=== PATIENT | female | born 1955 | race Caucasian/White ===

== ENCOUNTER → 2023-01-19 08:13 | Outpatient (REF) | payer OTHER, SELFPAY | LOC: HO.CARD 08:13 | PROVIDERS: PCP Family Medicine; Visit Provider Internal Medicine | DX: Z13.89 Encounter for screening for other disorder (principal) ==

== ENCOUNTER 2023-01-19 08:58 | Inpatient (IN) | payer OTHER, SELFPAY ==
--- NOTE | 2023-01-19 | ECG_ITS ---
Test Reason : PRE ADMISSION Blood Pressure : / mmHG Vent. Rate : 112 BPM Atrial Rate : 000 BPM P-R Int : 000 ms QRS Dur : 080 ms QT Int : 362 ms P-R-T Axes : 000 012 -09 degrees QTc Int : 494 ms Atrial fibrillation with rapid ventricular response Nonspecific T wave abnormality Intra-ventricular conduction delay Abnormal ECG When compared with ECG of 19-JAN-2023 09:11, Heart rate has decreased Referred By: Sea Valero Electronically Signed By:SAHRA LIN MD
--- NOTE | ~2023-01-19 | XR_ITS ---
EXAMINATION: XR CHEST CLINICAL INFORMATION: Atrial fibrillation with chest pain COMPARISON: 12/29/2026 TECHNIQUE: Frontal view of the chest was obtained. FINDINGS: The lungs are hypoinflated. There is mild prominence of the cardiac silhouette. No gross evidence of CHF. There are new (compared with 2006) increased interstitial markings present at the right lung base with some possible curly B lines which are not seen on the left. At the time of the prior study there was a left lower lobe interstitial infiltrate and atelectasis present which has cleared. No pleural effusions. XR/XR chest 1V IMPRESSION: Hypoinflated lungs with increased interstitial markings at the right lung base with some possible curly B lines. Infection as an etiology cannot be excluded.
--- NOTE | ~2023-01-19 | XR_ITS ---
EXAMINATION: XR CHEST CLINICAL INFORMATION: Shortness of breath COMPARISON: 01/19/2023 TECHNIQUE: Frontal view of the chest was obtained. FINDINGS: There is better inflation of lungs with persistent prominence of interstitial markings in the right lower lobe/right middle lobe. The rest of lungs are clear and cardiomediastinal silhouette is normal. There is no consolidation or pleural effusions seen. XR/XR chest 1V IMPRESSION: Persistent prominence of interstitial markings and improved aeration
[2023-01-19 09:04] VITALS: BP 128/79; PULSE 149; RESP 22; TEMP 36.6; O2SAT 98; BMI 36.8
--- NOTE | 2023-01-19 09:12 | ECG_ITS ---
Test Reason : AFIB Blood Pressure : / mmHG Vent. Rate : 135 BPM Atrial Rate : 000 BPM P-R Int : 000 ms QRS Dur : 082 ms QT Int : 320 ms P-R-T Axes : 000 009 005 degrees QTc Int : 480 ms Atrial fibrillation with rapid ventricular response Intra-ventricular conduction delay Nonspecific T wave abnormality Abnormal ECG When compared with ECG of 29-DEC-2006 01:59, Atrial fibrillation has replaced Sinus rhythm Nonspecific T wave abnormality is new Heart rate has increased Referred By: Asiya Winkler Electronically Signed By:SAHRA LIN MD
--- NOTE | 2023-01-19 09:30 | ED_ITS ---
HPI - Arrhythmia/Palpitations General Chief Complaint: Arrhythmia/Palpitations Stated Complaint: from cardiology Time Seen by Provider: 01/19/23 09:02 History of Present Illness HPI narrative: Patient is a 67-year-old female presents today with having chest pain. Patient chest pain worse with exertion. Was going to the stress lab when she was found to be in AFib. Patient was sent down for further evaluation. There is no fever no chills. Patient feels her heart is going fast. She has a history of being on metoprolol. Positive history of pre diabetes. No diaphoresis. Patient from home. No coughing or congestion or upper respiratory symptoms. Related Data Allergies Allergy/AdvReac Type Severity Reaction Status Date / Time Sulfa (Sulfonamide Allergy Unknown RASH Verified 01/19/23 09:36 Antibiotics) [SULFA (SULFONAMIDE ANTIBIOTICS)] Review of Systems 2 Review of Systems: Positive [facility] Past Medical History Attestation statement: The following information was validated with the patient. Family History Family History (Updated 01/19/23 @ 11:27 by Margarito Marshall MD) Father Heart problem Social History Social History Smoked in Last 30 Days: No Use of substances other than those prescribed or required for medical reasons: No Advance Directives: No Advance Directives Information Provided: Yes Physical Exam 2 Vital Signs: Vital Signs: Last Vital Signs Temp 97.9 F 01/19/23 09:04 Pulse 110 H 01/19/23 10:50 Resp 18 01/19/23 10:50 BP 113/80 01/19/23 10:50 Pulse Ox 97 01/19/23 10:50 O2 Del Method Room Air 01/19/23 10:50 BMI result Body Mass Index 36.8 Appearance: Alert. Oriented X3. No acute distress. Eyes: Pupils equal, round and reactive to light. ENT: Pharynx normal. Neck: Normal inspection. Neck supple. No lymph nodes noted. No crepitus CVS: Tachycardic and irregular Respiratory: No respiratory distress. Breath sounds normal. No Wheezing. No rales Abdomen: Soft and nontender. No rigidity. No distention. good BS x4 Skin: Skin warm and dry. Normal skin color. Normal skin turgor. Extremities: No lower extremity edema. Neurovascular intact to all extremities. No Lacerations. No Rash Neuro: Oriented X 3. No motor deficit. No sensory deficit. Moving all extermities. No slurred speech Medications Administered Discontinued Medications Generic Name Dose Route Start Last Admin Trade Name José Manuel PRN Reason Stop Dose Admin Aspirin 324 mg 01/19/23 09:27 01/19/23 09:36 Aspirin 81 Mg Tab.Chew PO 01/19/23 09:28 324 mg ONCE ONE Administration Sodium Chloride 500 mls @ 999 mls/hr 01/19/23 09:30 01/19/23 09:47 Ns IV 01/19/23 10:00 999 mls/hr .Q31M FREDDIE Administration Metoprolol Tartrate 5 mg 01/19/23 09:28 01/19/23 09:39 Metoprolol Tartrate 5 Mg/5 Ml Vial IVPUSH 01/19/23 09:29 5 mg ONCE ONE Administration Metoprolol Tartrate 5 mg 01/19/23 10:38 01/19/23 10:54 Metoprolol Tartrate 5 Mg/5 Ml Vial IVPUSH 01/19/23 10:39 5 mg ONCE ONE Administration Medical Decision Making Medical Decision Making [facility] Narrative: Patient presented in atrial fibrillation heart rate was approximately 140. My interpretation initial EKG showed an atrial fibrillation pattern heart rate was [address] segment elevation is diffuse T-wave flattening noted. Patient's blood pressure was tolerable went ahead and give patient 2 doses of metoprolol heart rate is down to 100 patient's Tavo Vasc 2 score is a 3. We will go ahead and start patient on Eliquis. Patient's case discussed with the cardiology team. Will admit patient for further evaluation possible cardioversion. Case discussed with the hospitalist team. Patient to be admitted. Had a long discussion with patient and family. Agree with plan of admission. Differential Diagnosis Differential Diagnoses: The differential diagnosis associated with the presentation includes Atrial fibrillation, CAD, congestive heart failure, hyperthyroid, Admission/Observation Consideration of admission/observation: Escalation of care including admission/observation considered Consult Healthcare Provider Management of the patient was discussed with: Hospitalist and Customer Retention Representative (Case discussed with head inspector) Lab Data [facility] Lab Attestation statement: I reviewed the patient's lab results. 01/19/23 10:09 01/19/23 10:09 Labs: Lab Results 11/15/23 Range/Units 10:09 WBC 6.4 (4.8-10.8) X10*3/uL RBC 4.42 (4.20-5.50) X10*6/uL Hgb 13.8 (12.0-16.0) g/dl Hct 42.7 (37.0-47.0) % MCV 96.6 (80.0-98.0) fL MCH 31.2 (27.0-33.0) pg MCHC 32.3 (31.0-35.0) g/dl RDW 13.2 (11.0-16.0) % Plt Count 240 (160-400) X10*3/uL MPV 9.9 (9.4-12.3) fL Immature Gran % (Auto) 0.3 (0.0-0.4) % Neut % (Auto) 68.2 (45-73) % Lymph % (Auto) 20.4 (20-40) % Bee % (Auto) 7.7 (2-11) % Eos % (Auto) 2.8 (0-4) % Baso % (Auto) 0.6 (0-2) % Lymph # (Auto) 1.3 (1.2-4.9) X10*3/uL Bee # (Auto) 0.5 (0.1-1.2) X10*3/uL Eos # (Auto) 0.2 (0.0-0.4) X10*3/uL Baso # (Auto) 0.0 (0.0-0.2) X10*3/uL Abs Immat Gran (auto) 0.02 (0.00-0.03) X10*3/uL Absolute Neuts (auto) 4.3 (2.0-8.3) x10*3/uL Absolute Nucleated RBC 0.000 (0.0-0.012) X10*3/uL Nucleated RBC % (auto) 0.0 (0.0-0.2) /100WBC PT 11.8 (11.1-13.3) SEC INR 1.0 (0.9-1.1) Sodium 141 (135-145) mmol/L Potassium 4.6 (3.3-5.1) mmol/L Chloride 111 H (96-108) mmol/L Carbon Dioxide 23 (22-29) mmol/L Anion Gap 12 (12-20) BUN 12 (9-16) mg/dL Creatinine 0.76 (0.5-1.4) mg/dL Estim Creat Clear Calc 84.8 Estimated GFR > 60 Random Glucose 131 H (60-115) mg/dL Calcium 9.3 (8.4-10.2) mg/dL Total Bilirubin 0.5 (0.0-1.0) mg/dL Direct Bilirubin 0.2 (0.0-0.5) mg/dL AST 16 (5-31) U/L ALT 22 (0-31) U/L Alkaline Phosphatase 80 (39-117) U/L Troponin I High Sens < 2.7 (<3.5-17.0) ng/L B-Natriuretic Peptide 298 H (<100) pg/mL Total Protein 7.0 (6.5-8.0) g/dL Albumin 3.9 (3.5-5.0) g/dL TSH 1.44 (0.32-4.0) uIU/mL Independent Interpretation I performed an independent interpretation of an: EKG (My interpretation of patient's EKG shows an atrial fibrillation pattern heart rate is 140 there is no acute ST segment elevation there is diffuse T-wave flattening noted.) External Record Review External record reviewed: Inpatient record Chronic Conditions Borderline diabetes, hypertension Critical Care Time Critical Care Time Critical Care Time: Yes Total Critical Care Time: 40 Attestation: I have personally provided 40 minutes of critical care time exclusive of time spent on separately billable procedures. Time includes review of lab data, radiology results, discussion with consultants, and monitoring for potential decompensation. Interventions were performed as documented above Discharge Plan Discharge Clinical Impression: Atrial fibrillation with rapid ventricular response Patient Disposition: Admitted As Inpatient
[2023-01-19] MEDS: Aspirin 81 MG TAB.CHEW 324 MG PO (09:36)
[2023-01-19] MEDS: Metoprolol Tartrate 5 MG/5 ML VIAL IVPUSH ×2 (09:39→10:54)
[2023-01-19] MEDS: 0.9 % Sodium Chloride 500 ML 999 ML IV (09:47)
--- NOTE | 2023-01-19 10:06 | PC.NURSE ---
pt comes from cardiology office which was scheduled for stress test for CP/increased SOB. pt was found to be in Afib with RVR 130-150 at cardiology office. Pt is symptomatic, SOB with mild exertion. 22g IV placed by cardiology, 5mg metoprolol given, EKG done and labs drawn. after metoprolol, rate reduced to 100-120. plan of care ongoing
[2023-01-19 10:15] LABS: MANUAL DIFF FLAG NO
[2023-01-19 10:17] LABS: Basophils Percent Auto 0.6 % (0-2); Eosinophils Absolute Auto 0.2 X10*3/uL (0.0-0.4); Eosinophils Percent Auto 2.8 % (0-4); Hematocrit 42.7 % (37.0-47.0); Hemoglobin 13.8 g/dl (12.0-16.0); Imm Gran Abs Auto 0.02 X10*3/uL (0.00-0.03); Imm Gran Pct Auto 0.3 % (0.0-0.4); Lymphocytes Absolute Auto 1.3 X10*3/uL (1.2-4.9); Lymphocytes Percent Auto 20.4 % (20-40); Mean Corpuscular HGB Conc 32.3 g/dl (31.0-35.0); Mean Corpuscular Hemoglobin 31.2 pg (27.0-33.0); Mean Corpuscular Volume 96.6 fL (80.0-98.0); Mean Platelet Volume 9.9 fL (9.4-12.3); Monocytes Absolute Auto 0.5 X10*3/uL (0.1-1.2); Monocytes Percent Auto 7.7 % (2-11); Neutrophils Absolute Auto 4.3 x10*3/uL (2.0-8.3); Neutrophils Percent Auto 68.2 % (45-73); Platelet Count 240 X10*3/uL (160-400); Red Blood Count 4.42 X10*6/uL (4.20-5.50); Red Cell Distribution Width 13.2 % (11.0-16.0); White Blood Count 6.4 X10*3/uL (4.8-10.8)
[2023-01-19 10:22] LABS: Prothrombin Time 11.8 SEC (11.1-13.3)
[2023-01-19 10:34] LABS: Alanine Aminotransferase 22 U/L (0-31); Albumin Level 3.9 g/dL (3.5-5.0); Alkaline Phosphatase 80 U/L (39-117); Anion Gap 12 (12-20); Aspartate Amino Transferase 16 U/L (5-31); Bilirubin Direct 0.2 mg/dL (0.0-0.5); Bilirubin Total 0.5 mg/dL (0.0-1.0); Blood Urea Nitrogen 12 mg/dL (9-16); Calcium 9.3 mg/dL (8.4-10.2); Carbon Dioxide 23 mmol/L (22-29); Chloride 111 mmol/L (96-108); Creatinine Clr Calc Pharmacy 84.8; Estimated Glomerular Filt Rate > 60; Glucose Random 131 mg/dL (60-115); Potassium 4.6 mmol/L (3.3-5.1); Sodium 141 mmol/L (135-145)
[2023-01-19 10:37] LABS: B Type Natriuretic Peptide 298 pg/mL (<100)
[2023-01-19 10:45] LABS: Troponin-I High Sensitivity < 2.7 ng/L (<3.5-17.0)
[2023-01-19 10:50] VITALS: BP 113/80; PULSE 110; RESP 18; O2SAT 97
[2023-01-19 10:56] LABS: TSH reflex Free T4 1.44 uIU/mL (0.32-4.0)
--- NOTE | 2023-01-19 11:25 | P.CONCA_ITS ---
History of Present Illness History of Present Illness Date of Service: 01/19/23 Chief complaint: from cardiology Narrative: This is a cardiology consultation regarding atrial fibrillation rapid rate. Patient came for stress testing and that showed atrial fibrillation rapid rate and hence she was sent to the emergency room. Patient states that she has been getting shortness of breath with activity for the last few weeks some chest tightness type symptoms. Not clear if she is independently describing angina but seems to be more bothered by the shortness of breath. Any case, she was seen by [facility] Cardiology and they recommended an echocardiogram and stress test. Patient does not have any known cardiac issues like coronary disease or myocardial infarction or cardiomyopathy. She does not have any major comorbidities. As she was in atrial fibrillation rapid rate, she was sent to the ER and they gave her some IV beta-blockers. Heart rate is now around 110/Min. Underlying rhythm is atrial fibrillation. Review of Systems 2 Review of Systems: Yes all other systems are reviewed and are negative Constitutional: Constitutional: Reports as per HPI and Reports no additional constitutional complaints Eyes: Eyes: Reports as per HPI and Denies no additional eye complaints ENT: Denies system reviewed and no additional complaints, except as documented and Reports as per HPI Cardiovascular: Cardiovascular: Reports as per HPI, Reports no additional cardiovascular complaints, Denies acrocyanosis, Denies cool extremities, Denies chest pain, Denies leg edema, Denies lightheadedness, Denies palpitations and Reports dyspnea Respiratory: Respiratory: Reports as per HPI, Denies no additional respiratory complaints and Reports dyspnea Gastrointestinal: Gastrointestinal: Reports as per HPI and Denies no additional gastrointestinal complaints Genitourinary: Genitourinary: Reports as per HPI Musculoskeletal: Musculoskeletal: Reports no additional musculoskeletal complaints and Reports as per HPI Integumentary/Breasts: Skin/Breast: Reports system reviewed and no additional complaints, except as docu Neurologic: Reports system reviewed and no additional complaints, except as documented and Reports as per HPI Psychiatric: Psychiatric: Reports no additional psychiatric complaints and Reports as per HPI Endocrine: Endocrine: Reports no additional endocrine complaints, Reports as per HPI and Denies palpitations Hematologic/Lymphatic: Hematologic/Lymphatic: Reports no additional hematologic/lymphatic complaints and Reports as per HPI Allergic/Immunologic: Allergic/Immunologic: Reports no additional allergic/immunologic complaints and Reports as per HPI [facility] Family History Family History (Updated 01/19/23 @ 11:27 by Margarito Marshall MD) Father Heart problem Social History Social History Smoked in Last 30 Days: No Use of substances other than those prescribed or required for medical reasons: No Advance Directives: No Advance Directives Information Provided: Yes Meds Allergies Allergy/AdvReac Type Severity Reaction Status Date / Time Sulfa (Sulfonamide Allergy Unknown RASH Verified 01/19/23 09:36 Antibiotics) [SULFA (SULFONAMIDE ANTIBIOTICS)] Physical Exam 2 Vital Signs: Vital Signs: Last Vital Signs Temp 97.9 F 01/19/23 09:04 Pulse 110 H 01/19/23 10:50 Resp 18 01/19/23 10:50 BP 113/80 01/19/23 10:50 Pulse Ox 97 01/19/23 10:50 O2 Del Method Room Air 01/19/23 10:50 BMI result Body Mass Index 36.8 Const: General: comfortable and no acute distress O rientation/consciousness: patient oriented x3 HEENT: Other: Unremarkable Head: Yes normal to inspection Neck: Neck: Yes normal visual inspection Chest: Chest palpation & inspection: normal inspection of the chest Resp: Auscultation: clear to auscultation bilaterally Cardio: Palpation: normal PMI Heart sounds: S1 normal heart sound present, S2 normal heart sound present, no gallops, no murmurs and no rubs GI: Palpation (GI): Soft to palpation Back/Spine/Pelvis: Other: unremarkable Skin: General skin exam: no rashes or lesions noted Neuro: General: patient oriented x3 Extrem: General: Yes normal to inspection Psych: Mental Status: mental status grossly normal Objective Labs and Meds 01/19/23 10:09 01/19/23 10:09 Lab results: Laboratory Results - last 24 hr 01/19/23 10:09 WBC 6.4 RBC 4.42 Hgb 13.8 Hct 42.7 MCV 96.6 MCH 31.2 MCHC 32.3 RDW 13.2 Plt Count 240 MPV 9.9 Immature Gran % (Auto) 0.3 Neut % (Auto) 68.2 Lymph % (Auto) 20.4 [place] % (Auto) 7.7 Eos % (Auto) 2.8 Baso % (Auto) 0.6 Lymph # (Auto) 1.3 [place] # (Auto) 0.5 Eos # (Auto) 0.2 Baso # (Auto) 0.0 Abs Immat Gran (auto) 0.02 Absolute Neuts (auto) 4.3 Absolute Nucleated RBC 0.000 Nucleated RBC % (auto) 0.0 PT 11.8 INR 1.0 Sodium 141 Potassium 4.6 Chloride 111 H Carbon Dioxide 23 Anion Gap 12 BUN 12 Creatinine 0.76 Estim Creat Clear Calc 84.8 Estimated GFR > 60 Random Glucose 131 H Calcium 9.3 Total Bilirubin 0.5 Direct Bilirubin 0.2 AST 16 ALT 22 Alkaline Phosphatase 80 Troponin I High Sens < 2.7 B-Natriuretic Peptide 298 H Total Protein 7.0 Albumin 3.9 TSH 1.44 ECG Interpretation: EKG with atrial fibrillation rate of 135/Min; nonspecific ST-T changes and cannot exclude old anterior infarct. Imaging Radiologist's impression: Impressions Chest X-Ray 01/19/23 09:37 IMPRESSION: Hypoinflated lungs with increased interstitial markings at the right lung base with some possible curly B lines. Infection as an etiology cannot be excluded. Assessment and Plan (1) Atrial fibrillation with rapid ventricular response: Status: Acute Plan Patient has atrial fibrillation rapid ventricular rate which could have been ongoing for the last few weeks/months causing symptoms. X-ray shows evidence of some congestive heart failure. Discussed about options including JET/cardioversion the next day or so. She is quite reluctant and would like to just think about it for now. She is not sure if she wants to be staying in the hospital. If that is the case, then discussed about possibly outpatient cardioversion in about 4 weeks time after adequate anticoagulation. She is not sure [address] another and would like to talk with her significant other. Start Eliquis. Already got some IV beta-blockers from ER. Final plan to be decided accordingly. Discussed with the ER physician. Procedures Date of Service Date of Service: 01/19/23
[2023-01-19] MEDS: Apixaban 5 MG TABLET PO ×2 (11:49→20:31)
--- NOTE | 2023-01-19 12:06 | PC.NURSE ---
pt in afib on tele - rate between high 90s and 120. no reports of pain, pt SOB on exertion but has been resting in ER. belongings list done by tech. family member at bedside, awaiting admit orders
--- NOTE | 2023-01-19 12:54 | P.HPHOSP_ITS ---
History of Present Illness Date of Service: 01/19/23 Attending physician on admission: Allie Adams Chief Complaint: Palpitations Pt is a 67-year-old female with a PMH significant for?HTN and GERD who presents to the ED from Cardiology office for evaluation and treatment of AFib with RVR. Patient states she has been experiencing shortness of breath and fatigue, especially going up stairs or walking up inclines for around the past year and half. Symptoms have worsened in the past 6 weeks. Also notes she has had increased swelling in feet and legs for the past 6 months with increasing dry cough for the past 3-4 weeks. Occasional chest tightness/pressure. Patient was seen by [facility] Cardiology who recommended receiving an echocardiogram and stress test. Patient presented today for stress test but EKG revealed her to be in AFib with RVR so sent to the ED for further evaluation and workup. Patient denies fever, chills, nausea, vomiting, abdominal pain. Denies increasing orthopnea, states she often sleeps on side and has elevated her head for many years due to GERD. Denies PND. Patient denies any history of smoking, alcohol, or illicit drug use. In the ED patient was afebrile but tachycardic up to 149 with respiratory rate 22 but normotensive and satting at 98% RA. Labs were significant for elevated BNP 298. CXR showed hypoinflated lungs with increased interstitial markings at the right base with some possible Rochelle B lines, though infectious etiology cannot be excluded. EKG demonstrated AFib with RVR of 135, with no evidence of ST elevations or depressions. Pt was treated with metoprolol IV 5 mg x 2 doses, IVF, aspirin, and started on Eliquis. Pt will be admitted to the hospital for treatment and further evaluation of new onset AFib with RVR and new onset CHF. Review of Systems 2 Review of Systems: Increasing shortness of breath, fatigue LEES Dry cough Lower leg edema Chest tightness Denies fever, chills, nausea, vomiting, abdominal pain [facility] Medical History (Updated 01/20/23 @ 10:31 by Margarito Marshall MD) GERD (gastroesophageal reflux disease) HTN (hypertension) Family History Father Heart problem Social History Household Members: Spouse Housing: House Patient Tobacco Use Status: Never used Tobacco Smoked in Last 30 Days: No Use of substances other than those prescribed or required for medical reasons: No Currently Displaying Signs/Symptoms of Drug Intoxication Withdrawal: No Have you been hit, kicked, punched, or otherwise hurt by someone within the past year? If so, by whom?: No Do you feel safe in your current relationship?: Yes Is there a partner from a previous relationship who is making you feel unsafe now?: No Are you made to feel afraid or neglected: No Advance Directives: No Advance Directives Information Provided: Yes Do you have thoughts of harming others: None Do you have a plan to hurt others: No Plan Nutrition Risks: No Nutritional Risk Patient : No : No service: No Meds Allergies Allergy/AdvReac Type Severity Reaction Status Date / Time Sulfa (Sulfonamide Allergy Unknown RASH Verified 01/19/23 09:36 Antibiotics) [SULFA (SULFONAMIDE ANTIBIOTICS)] Home Medications Medication Instructions Recorded Confirmed Last Taken Type levothyroxine 25 mcg tablet 25 mcg PO DAILY 01/19/23 01/19/23 01/18/23 History lisinopril 10 mg tablet 10 mg PO DAILY 01/19/23 01/19/23 01/18/23 History metoprolol tartrate 25 mg tablet 25 mg PO DAILY 01/19/23 01/19/23 01/18/23 History Physical Exam 2 Vital Signs and Narrative: Vital Signs: Last Vital Signs Temp 97.9 F 01/19/23 09:04 Pulse 110 H 01/19/23 10:50 Resp 18 01/19/23 10:50 BP 113/80 01/19/23 10:50 Pulse Ox 97 01/19/23 10:50 O2 Del Method Room Air 01/19/23 10:50 BMI result Body Mass Index 36.8 Constitutional: Alert, in no acute distress. Mental Status: Oriented to person, place and time. Eyes: Pupils are equal, round, and reactive to light. Ear, Nose, and Throat: Oropharynx clear, mucous membranes moist. Ears and nose without deformities. Trachea midline. Respiratory: Lower lobe rhonchi bilaterally. No respiratory distress, capable of speaking in complete sentences. Cardiovascular: Irregularly irregular rhythm. No murmurs rubs, gallops. Gastrointestinal: Abdomen soft, non-tender, non-distended. Normal bowel sounds. Neurologic: Cranial nerves II-XII are grossly intact bilaterally. No focal neurological deficits. Moves all extremities spontaneously. Skin: No rashes or lesions noted. Musculoskeletal: No cyanosis or clubbing. Extremities: Bilateral 1+ pitting edema. Psychiatric: Normal mood and affect. Results Labs 01/20/23 06:40 01/20/23 06:40 Labs: Laboratory Results - last 24 hr 01/19/23 10:09 MCV 96.6 MCH 31.2 MCHC 32.3 RDW 13.2 Plt Count 240 MPV 9.9 Immature Gran % (Auto) 0.3 Neut % (Auto) 68.2 Lymph % (Auto) 20.4 [place] % (Auto) 7.7 Eos % (Auto) 2.8 Baso % (Auto) 0.6 Lymph # (Auto) 1.3 [place] # (Auto) 0.5 Eos # (Auto) 0.2 Baso # (Auto) 0.0 Abs Immat Gran (auto) 0.02 Absolute Neuts (auto) 4.3 Absolute Nucleated RBC 0.000 Nucleated RBC % (auto) 0.0 PT 11.8 INR 1.0 Anion Gap 12 Estim Creat Clear Calc 84.8 Estimated GFR > 60 Random Glucose 131 H Calcium 9.3 Total Bilirubin 0.5 Direct Bilirubin 0.2 AST 16 ALT 22 Alkaline Phosphatase 80 B-Natriuretic Peptide 298 H Total Protein 7.0 Albumin 3.9 TSH 1.44 Imaging Radiologist's Impressions: Impressions Chest X-Ray 01/19/23 09:37 IMPRESSION: Hypoinflated lungs with increased interstitial markings at the right lung base with some possible curly B lines. Infection as an etiology cannot be excluded. Assessment and Plan (1) Atrial fibrillation with rapid ventricular response: Status: Acute (2) Heart failure, unspecified: Qualifiers: Heart failure chronicity: acute Heart failure type: unspecified Qualified Code(s): I50.9 - Heart failure, unspecified Status: Acute Plan Pt is a 67-year-old female with a PMH significant for?HTN, hypothyroidism, and GERD who presents to the ED from Cardiology office for evaluation and treatment of AFib with RVR. Pt will be admitted to the hospital for treatment and further evaluation of new onset AFib with RVR and new onset CHF. New onset AFib with RVR EKG showed AFib with RVR 135, no previous history AFib Patient with increasing SOB and fatigue released the past 6 weeks Received metoprolol 5 mg IV x2 doses in ED with right improvement Be started metoprolol 25 mg p.o. Q i.d., Eliquis 5 mg b.i.d. Pt will get TTE now, possible JET with cardioversion on Tuesday Cardiology consult Monitor on telemetry New onset CHF, unspecified CXR with evidence of CHF, elevated BNP, patient with SOB, pitting edema Possibly secondary to a fib Will treat with Lasix 20 mg IV daily Follow lytes, I/O Daily weights, low-salt diet Echocardiogram Cardiology consult Monitor on telemetry HTN Continue lisinopril, metoprolol Hypothyroidism Continue levothyroxine GERD Not currently any home medications Tums prn Full Code Attending:?Dr. Adams DVT Prophylaxis: On Eliquis Pt will require a hospitalization of at least two nights for treatment of?new onset AFib with RVR in new onset CHF. Patient be treated with IV diuretics, close monitoring, specialist consultation, and possible cardioversion. Quality Stroke Does the patient have a stroke diagnosis?: No VTE Prior VTE?: No VTE Risk Level:: Medical - moderate - high VTE Device Contraindication: Treatment Not Indicated VTE Drug Contraindication: N/A - Med Ordered
[2023-01-19 14:40] VITALS: BP 112/85; PULSE 108; RESP 18; O2SAT 92
--- NOTE | 2023-01-19 14:42 | MHC.EDTECH ---
This pct recorded vitals on this patient, I charted the heartrate at 108 but the heartrate jumps from 108-123. RN Aware
--- NOTE | 2023-01-19 14:42 | PHA.MEDREC ---
Pharmacy Consult ? Medication Reconciliation Pharmacy has completed the medication reconciliation. pt was able to confirm what the names of her medications were. confirmed dosing based on claim history as she wasn't sure about it. Claim history states metoprolol is bid but she states she only takes once daily.
--- NOTE | 2023-01-19 14:59 | PC.NURSE ---
assumed care of pt at 1500
[2023-01-19] MEDS: Furosemide 20 MG/2 ML VIAL IVPUSH (15:03)
--- NOTE | 2023-01-19 16:37 | PC.NURSE ---
pt reported increased chest tightness. Hospitalist made aware. vital signs stable on fashion designer HR irregular but controlled, rate 95-115. PA aware. ambulates with a steady gait to and from bathroom. call mcqueen within reach. plan of care ongoing
[2023-01-19] MEDS: Metoprolol Tartrate 25 MG TABLET PO ×2 (16:42→20:31)
[2023-01-19 16:45] VITALS: BP 124/73; PULSE 109; RESP 22; O2SAT 97
[2023-01-19 17:27] LABS: Estimated Average Glucose 126 mg/dL
[2023-01-19 17:54] LABS: Troponin-I High Sensitivity < 2.7 ng/L (<3.5-17.0)
--- NOTE | 2023-01-19 18:20 | PC.NURSE ---
report called to [facility] RN @ 18:20
[2023-01-19 19:54] VITALS: BP 112/74; PULSE 87; RESP 18; TEMP 36.3; O2SAT 94
[2023-01-19] MEDS: 0.9 % Sodium Chloride Flush 3 ML SYRINGE IVFLUSH (20:32)
[2023-01-19 21:51] VITALS: BMI 36.6
[2023-01-19 22:47] VITALS: BP 114/72; PULSE 92; RESP 20; TEMP 36.1; O2SAT 95
[2023-01-20] VITALS (8 sets, daily range): BP systolic 91–129; BP diastolic 54–73; PULSE 78–111; RESP 18–20; TEMP 36.1–36.8; O2SAT 93–95; BMI 36.2
[2023-01-20] MEDS: Levothyroxine Sodium 25 MCG TABLET PO (06:07)
[2023-01-20 06:53] LABS: Hematocrit 41.2 % (37.0-47.0); Hemoglobin 13.4 g/dl (12.0-16.0); Mean Corpuscular HGB Conc 32.5 g/dl (31.0-35.0); Mean Corpuscular Hemoglobin 31.5 pg (27.0-33.0); Mean Corpuscular Volume 96.9 fL (80.0-98.0); Mean Platelet Volume 9.9 fL (9.4-12.3); Platelet Count 245 X10*3/uL (160-400); Red Blood Count 4.25 X10*6/uL (4.20-5.50); Red Cell Distribution Width 13.3 % (11.0-16.0); White Blood Count 6.7 X10*3/uL (4.8-10.8)
--- NOTE | 2023-01-20 07:00 | CA_ITS ---
Transthoracic Echocardiogram Patient (Last, First, Middle): Dennise Ramsay J Gender: Female Date of : 1955 Age: 67 Procedure Date: 01/20/2023 Procedure Type: Transthoracic Echocardiogram Location: [facility] [place] Height: 167.64 cm Weight: 103.42 kg BSA: 2.11 m2 Heart Rate: bpm BP: 113 / 80 mmHg Wet Process Head Miller: LOU Referring MD: Margarito Marshall MD Symptoms: atrial fibrillation Study Quality: Fair/w Contrast/Limited ECG Rhythm: Atrial Fibrillation Conclusions: - The left ventricular systolic function is moderately decreased. The visually estimated ejection fraction is between 30-35%. Findings Procedure Information Contrast agent, definity, is being given per protocol without apparent complications. Left Ventricle Normal left ventricular cavity size. There is mildly increased left ventricular wall thickness. The left ventricular systolic function is moderately decreased. The visually estimated ejection fraction is between 30 35%. There is moderate global hypokinesis. Venous The inferior vena cava is normal in size and collapses greater than 50% with inspiration. Pericardium/Pleural There is no evidence of pericardial effusion. Prior Study Comparison No prior study available for comparison. Measurements 2D Linear Measurements IVSd: 1.21 0.6-0.9/0.6-1.0 cm LVIDd: 4.70 3.9-5.3/4.2-5.9 cm LVIDd Index: 2.23 2.4-3.2/2.2-3.1 cm/m2 LVIDs: 3.97 2.0-3.6 cm LVPWd: 1.13 0.7-1.1 cm LV Mass: 254.89 67-162/88-224 g LV Mass Index: 120.80 43-95/49-115 g/m2 LVOT Diam: 1.90 3.0+(-)1.3 cm 2D Systolic Function EF 4C: 35.00 >55% EF 2C: 35.00 >55% EF BiP: 33.80 >55% LVOT LVOT Pk Jude: 0.79 LVOT Mn Jude: 0.57 LVOT VTI: 0.14 LVOT Pk Grad: 3.00 LVOT Mn Grad: 1.00 LVOT Diam: 1.90 LVOT Area: 2.84 Updated in Other Vendor System with Status of Final Margarito Marshall MD electronically signed on 01/20/2023 3:19:35 PM with status of Final
[2023-01-20 07:10] LABS: Anion Gap 10 (12-20); Blood Urea Nitrogen 14 mg/dL (9-16); Calcium 9.1 mg/dL (8.4-10.2); Carbon Dioxide 26 mmol/L (22-29); Chloride 109 mmol/L (96-108); Creatinine Clr Calc Pharmacy 77.9; Estimated Glomerular Filt Rate > 60; Glucose Random 120 mg/dL (60-115); Potassium 4.3 mmol/L (3.3-5.1); Sodium 141 mmol/L (135-145)
[2023-01-20] MEDS: Apixaban 5 MG TABLET PO ×2 (07:47→22:22)
[2023-01-20] MEDS: LORazepam 0.5 MG TABLET PO (07:48)
[2023-01-20] MEDS: Metoprolol Tartrate 5 MG/5 ML VIAL IVPUSH (07:48)
[2023-01-20] MEDS: 0.9 % Sodium Chloride Flush 3 ML SYRINGE IVFLUSH ×3 (07:49→22:31)
[2023-01-20 08:32] LABS: B Type Natriuretic Peptide 246 pg/mL (<100)
[2023-01-20 08:39] LABS: VBG Base Excess 2.6 mmol/L; VBG HCO3 26 mmol/L (22-26); VBG pCO2 38 mmHg; VBG pH 7.45 (7.32-7.43); VBG pO2 80 mmHg
[2023-01-20 08:46] LABS: Venous Blood Gas Refer to POC result
--- NOTE | 2023-01-20 09:17 | MHC.CM.PN ---
IMM 01/20/2023, EMR REVIEWED, PT ADMITTED W/NEW ONSET AFIB W/RVR AND NEW ONSET CHF, CM MET W/PT INDEP W/ALL CARE, DENIES USE OF DME/SERVICES. GOAL IS HOME NO SERVICES WHEN MEDICALLY CLEARED. PT COMPLETED A HCP NAMING HER DTR ALTAGRACIA BAIRD [phone] HER [facility] W/NO ALTERNATE CHOSEN. PT RECEIVED EDUCATIONAL HANDOUT, ORIGINAL AND 2 COPIES. PT VERIFIES PCP IS JANE GONZALEZ AND DENIES HAVING RECEIVED ANY [employer] VACCINES.
[2023-01-20] MEDS: Metoprolol Tartrate 25 MG TABLET PO ×2 (09:25→11:01)
[2023-01-20] MEDS: guaiFEN/Codeine SF 200/20/10ML 10 ML LIQUID PO (09:25)
--- NOTE | 2023-01-20 10:29 | PM.PNCARD ---
Subjective Subjective Date of Service: 01/20/23 Interval history: Overall, just about the same as before. She is mostly resting in bed and hence she states she feels okay. Has not done physical activity otherwise. Review of Systems Review of Systems Yes all other systems are reviewed and are negative Constitutional: Reports as per HPI and Reports no additional constitutional complaints Eyes: Reports as per HPI and Denies no additional eye complaints Denies system reviewed and no additional complaints, except as documented and Reports as per HPI Cardiovascular: Reports as per HPI, Reports no additional cardiovascular complaints, Denies acrocyanosis, Denies cool extremities, Denies chest pain, Denies leg edema, Denies lightheadedness, Denies palpitations and Denies dyspnea Respiratory: Reports as per HPI, Denies no additional respiratory complaints and Denies dyspnea Gastrointestinal: Reports as per HPI and Denies no additional gastrointestinal complaints Genitourinary: Reports as per HPI Musculoskeletal: Reports no additional musculoskeletal complaints and Reports as per HPI Skin/Breast: Reports system reviewed and no additional complaints, except as docu Reports system reviewed and no additional complaints, except as documented and Reports as per HPI Psychiatric: Reports no additional psychiatric complaints and Reports as per HPI Endocrine: Reports no additional endocrine complaints, Reports as per HPI and Denies palpitations Hematologic/Lymphatic: Reports no additional hematologic/lymphatic complaints and Reports as per HPI Allergic/Immunologic: Reports no additional allergic/immunologic complaints and Reports as per HPI Physical Exam Vital Signs: Last Vital Signs Temp 97.7 F 01/20/23 07:01 Pulse 81 01/20/23 07:01 Resp 18 01/20/23 07:01 BP 120/73 01/20/23 08:07 Pulse Ox 94 01/20/23 07:01 O2 Del Method Room Air 01/20/23 07:01 BMI result Body Mass Index 36.2 Const General: comfortable and no acute distress Orientation/consciousness: patient oriented x3 HEENT Other: Unremarkable Head: Yes normal to inspection Neck Neck: Yes normal visual inspection Chest Chest palpation & inspection: normal inspection of the chest Resp Other: Inspiratory crackles at bases Cardio Palpation: normal PMI Heart sounds: S1 normal heart sound present, S2 normal heart sound present, no gallops, no murmurs and no rubs GI Palpation (GI): Soft to palpation Back/Spine/Pelvis Other: unremarkable Skin General skin exam: no rashes or lesions noted Neuro General: patient oriented x3 Extrem General: Yes normal to inspection Psych Mental Status: mental status grossly normal Objective Labs and Meds 01/20/23 06:40 01/20/23 06:40 Lab results: Laboratory Results - last 24 hr 01/19/23 01/19/23 01/20/23 10:09 17:14 06:40 WBC 6.7 RBC 4.25 Hgb 13.4 Hct 41.2 MCV 96.9 MCH 31.5 MCHC 32.5 RDW 13.3 Plt Count 245 MPV 9.9 Absolute Nucleated RBC 0.000 Nucleated RBC % (auto) 0.0 VBG pH VBG pCO2 VBG pO2 VBG HCO3 VBG O2 Saturation VBG Base Excess Sodium 141 141 Potassium 4.6 4.3 Chloride 111 H 109 H Carbon Dioxide 23 26 Anion Gap 12 10 L BUN 12 14 Creatinine 0.76 0.82 Estim Creat Clear Calc 84.8 77.9 Estimated GFR > 60 > 60 Random Glucose 131 H 120 H Estimat Average Glucose 126 Hemoglobin A1c % 6.0 Calcium 9.3 9.1 Total Bilirubin 0.5 Direct Bilirubin 0.2 AST 16 ALT 22 Alkaline Phosphatase 80 Troponin I High Sens < 2.7 < 2.7 B-Natriuretic Peptide 298 H 246 H Total Protein 7.0 Albumin 3.9 TSH 1.44 01/20/23 08:34 WBC RBC Hgb Hct MCV MCH MCHC RDW Plt Count MPV Absolute Nucleated RBC Nucleated RBC % (auto) VBG pH 7.45 H VBG pCO2 38 VBG pO2 80 VBG HCO3 26 VBG O2 Saturation 96.0 VBG Base Excess 2.6 Sodium Potassium Chloride Carbon Dioxide Anion Gap BUN Creatinine Estim Creat Clear Calc Estimated GFR Random Glucose Estimat Average Glucose Hemoglobin A1c % Calcium Total Bilirubin Direct Bilirubin AST ALT Alkaline Phosphatase Troponin I High Sens B-Natriuretic Peptide Total Protein Albumin TSH Imaging Radiologist's impression: Impressions Chest X-Ray 01/19/23 09:37 IMPRESSION: Hypoinflated lungs with increased interstitial markings at the right lung base with some possible curly B lines. Infection as an etiology cannot be excluded. Progress Note: A&P Assessment and plan (1) Atrial fibrillation with rapid ventricular response: Status: Acute Assessment and Plan: Increase metoprolol to 50 mg q.6 as the rates are still fast. Continue anticoagulation. She is on schedule for JET/cardioversion tomorrow morning. NPO past midnight. (2) Acute congestive heart failure: Status: Acute Assessment and Plan: Continue IV diuretics. She could be going into congestive heart failure because of atrial fibrillation rapid rate. Will review echocardiogram. Eventually, ischemia workup. Plan Discussed with Dr. Adams. Time Spent With Patient Time: Total time managing care of this patient today ____ minutes. Progress Note: Quality Stroke Does the patient have a stroke diagnosis?: No Procedures Date of Service Date of Service: 01/20/23
[2023-01-20] MEDS: ondansetron HCL 4 MG/2 ML VIAL IVPUSH (11:01)
[2023-01-20] MEDS: Metoprolol Tartrate 50 MG TABLET PO ×3 (15:03→22:22)
--- NOTE | 2023-01-20 16:06 | HO.PM.IMPN ---
Subjective Subjective Date of Service: 01/20/23 Interval History: Palpitations afib with rvr Review of Systems Seems slightly anxious otherwise denies any chest pain or shortness of breath or cough. Physical Exam Vital Signs: Vital Signs: Last Vital Signs Temp 98.2 F 01/20/23 15:48 Pulse 98 01/20/23 15:48 Resp 20 01/20/23 15:48 BP 111/67 01/20/23 15:48 Pulse Ox 94 01/20/23 15:48 O2 Del Method Room Air 01/20/23 15:48 BMI result Body Mass Index 36.2 Appearance: Alert.? Oriented X3. cvs: irregular rythem, [id number] , no murmur res: clear to auscultation ,no rhonchii or wheezing abd: no rebound or guarding ,nt, bs present. ext pulses present , no cyanosis . neuro: axo3 , nonfocal. Objective Data Active Medications Acetaminophen (Acetaminophen 325 Mg Tablet) 650 mg PO Q6H PRN PRN Reason: Pain, Mild (Pain Scale 1-3) Apixaban (Apixaban 5 Mg Tablet) 5 mg PO BID [facility] Last Admin: 01/20/23 07:47 Dose: 5 mg Documented By: MARIANA Benzonatate (Benzonatate 100 Mg Capsule) 100 mg PO TID PRN PRN Reason: Cough Calcium Carbonate (Calcium Carbonate 750 Mg Tab.Chew) 750 mg PO Q6H PRN PRN Reason: GI Upset Docusate Sodium (Docusate Sodium 100 Mg Capsule) 100 mg PO DAILY PRN PRN Reason: Constipation Furosemide (Furosemide 20 Mg/2 Ml Vial) 20 mg IVPUSH DAILY [facility]; Protocol Last Admin: 01/20/23 08:05 Dose: Not Given Documented By: MARIANA Non-Admin Reason: Physician Held Med Levothyroxine Sodium (Levothyroxine Sodium 25 Mcg Tablet) 25 mcg PO DAILY@0600 [facility] Last Admin: 01/20/23 06:07 Dose: 25 mcg Documented By: OBI Melatonin (Melatonin 3 Mg Tablet) 6 mg PO BEDTIME PRN PRN Reason: Insomnia Metoprolol Tartrate (Metoprolol Tartrate 50 Mg Tablet) 50 mg PO QID [facility]; Protocol Last Admin: 01/20/23 15:03 Dose: 50 mg Documented By: MARIANA Ondansetron HCl (Ondansetron Hcl 4 Mg/2 Ml Vial) 4 mg IVPUSH Q8H PRN PRN Reason: Nausea and Vomiting Last Admin: 01/20/23 11:01 Dose: 4 mg Documented By: MARIANA Sodium Chloride (0.9 % Sodium Chloride Flush 3 Ml Syringe) 3 ml IVFLUSH QSHIFT [facility]EDDIE Last Admin: 01/20/23 07:49 Dose: 3 ml Documented By: MARIANA Labs 01/20/23 06:40 01/20/23 06:40 Labs: Laboratory Results - last 24 hr 01/19/23 01/20/23 01/20/23 10:09 06:40 08:34 MCV 96.9 MCH 31.5 MCHC 32.5 RDW 13.3 Plt Count 245 MPV 9.9 Absolute Nucleated RBC 0.000 Nucleated RBC % (auto) 0.0 VBG pH 7.45 H VBG pCO2 38 VBG pO2 80 VBG HCO3 26 VBG O2 Saturation 96.0 VBG Base Excess 2.6 Anion Gap 10 L Estim Creat Clear Calc 77.9 Estimated GFR > 60 Random Glucose 120 H Estimat Average Glucose 126 Hemoglobin A1c % 6.0 Calcium 9.1 B-Natriuretic Peptide 246 H Assessment and Plan (1) Heart failure, unspecified: Status: Acute (2) Atrial fibrillation with rapid ventricular response: Status: Acute Plan 67-year-old female with a PMH significant for?HTN, hypothyroidism, and GERD who presents to the ED from Cardiology office for evaluation and treatment of AFib with RVR. Pt will be admitted to the hospital for treatment and further evaluation of new onset AFib with RVR and new onset CHF. New onset AFib with RVR EKG showed AFib with RVR 135, no previous history AFib Patient with increasing SOB and fatigue released the past 6 weeks Received metoprolol 5 mg IV x2 doses in ED with right improvement switched to metoprolol 50 mg p.o. Q i.d., Eliquis 5 mg b.i.d. Pt will get TTE now, possible JET with cardioversion on Tuesday Cardiology consult Monitor on telemetry New onset CHF, unspecified CXR with evidence of CHF, elevated BNP, patient with SOB, pitting edema Possibly secondary to a fib Will treat with Lasix 20 mg IV daily Follow lytes, I/O Daily weights, low-salt diet Echocardiogram Cardiology consult Monitor on telemetry HTN metoprolol,hold lisinopril due to boderline bp. Hypothyroidism Continue levothyroxine GERD Not currently any home medications Tums prn Full Code DVT Prophylaxis: On Eliquis ongoing hospitalization need for treatment of?new onset AFib with RVR in new onset CHF. Patient be treated with IV diuretics, close monitoring, specialist consultation, and possible cardioversion. Quality Stroke Does the patient have a stroke diagnosis?: No VTE Prior VTE?: No VTE Risk Level:: Medical - moderate - high VTE Device Contraindication: Treatment Not Indicated VTE Drug Contraindication: N/A - Med Ordered
[2023-01-21] VITALS (11 sets, daily range): BP systolic 86–133; BP diastolic 55–96; PULSE 61–130; RESP 16–20; TEMP 36.1–36.7; O2SAT 91–98; BMI 36.0
--- NOTE | 2023-01-21 07:00 | CA_ITS ---
Transesophageal Echocardiogram Patient (Last, First, Middle): Dennise Ramsay J Gender: Female Date of : 1955 Age: 67 Procedure Date: 01/21/2023 Procedure Type: Transesophageal Echocardiogram Location: [facility] [place] Height: 167. cm Weight: 103. kg BSA: 2.11 m2 Heart Rate: bpm Emery Wheel Worker: JIMENEZ/GURVINDER Referring MD: Margarito Marshall MD Symptoms: Atrial fibrillation Conclusion: ??? There is no evidence of a thrombus in the left atrial appendage. Findings Procedure Information Pre JET oral cavity was checked and revealed no overcrowding. The adult 3D probe was passed with no difficulty. Left Ventricle Normal left ventricular cavity size. The left ventricular systolic function is moderately decreased. The visually estimated ejection fraction is between 30-35%. There is moderate global hypokinesis. Diastolic function is indeterminate on the basis of available data. Right Ventricle Mildly increased right ventricular cavity size. There is normal right ventricular systolic function. Atria There is no evidence of a thrombus in the left atrial appendage. There is no evidence of interatrial shunt by color Doppler. Diminished velocities at mouth of appendage. Aortic Valve There is a normal trileaflet aortic valve. There is no aortic valve stenosis. There is trace (trivial) aortic valve regurgitation. Mitral Valve The mitral valve appears normal. There is mild mitral valve regurgitation. There is no mitral valve stenosis. Pulmonic Valve The pulmonic valve was not well visualized. Tricuspid Valve There is trace tricuspid valve regurgitation. Great Vessels The asc aorta is normal in size. Mild atherosclerotic plaque in the visualized areas of descending thoracic aorta and arch. Venous The inferior vena cava was not well visualized. Pericardium/Pleural There is no evidence of pericardial effusion. Prior Study Comparison No significant change compared to prior study dated: 01/20/2023. Updated by Margarito Marshall on 12:39 PM with Status of Final Margarito Marshall MD electronically signed on 01/22/2023 12:39:02 PM with status of Final
[2023-01-21 07:34] LABS: Anion Gap 11 (12-20); Blood Urea Nitrogen 12 mg/dL (9-16); Carbon Dioxide 26 mmol/L (22-29); Chloride 108 mmol/L (96-108); Creatinine Clr Calc Pharmacy 79.6; Estimated Glomerular Filt Rate > 60; Glucose Random 123 mg/dL (60-115); Sodium 141 mmol/L (135-145)
[2023-01-21] MEDS: Levothyroxine Sodium 25 MCG TABLET PO (07:46)
[2023-01-21] MEDS: Metoprolol Tartrate 50 MG TABLET PO (08:39)
[2023-01-21] MEDS: Furosemide 20 MG/2 ML VIAL IVPUSH (08:39)
[2023-01-21] MEDS: Apixaban 5 MG TABLET PO ×2 (08:39→20:41)
[2023-01-21] MEDS: 0.9 % Sodium Chloride Flush 3 ML SYRINGE IVFLUSH ×3 (08:39→20:42)
--- NOTE | 2023-01-21 09:16 | P.CONAN_ITS ---
[facility] Active Problems Active Problems: All Active Problems (Updated 01/20/23 @ 10:31 by Margarito Marshall MD) Acute congestive heart failure (Acute) Heart failure, unspecified (Acute) Atrial fibrillation with rapid ventricular response (Acute) Past Medical History Medical History (Updated 01/20/23 @ 10:31 by Margarito Marshall MD) GERD (gastroesophageal reflux disease) HTN (hypertension) Family History Family History Father Heart problem Family history of problems with anesthesia: No Surgical History History of Problems with Anesthesia: No Social History Social History Household Members: Spouse Housing: House Patient Tobacco Use Status: Never used Tobacco Smoked in Last 30 Days: No Use of substances other than those prescribed or required for medical reasons: No Currently Displaying Signs/Symptoms of Drug Intoxication Withdrawal: No Have you been hit, kicked, punched, or otherwise hurt by someone within the past year? If so, by whom?: No Do you feel safe in your current relationship?: Yes Is there a partner from a previous relationship who is making you feel unsafe now?: No Are you made to feel afraid or neglected: No Advance Directives: No Advance Directives Information Provided: Yes Do you have thoughts of harming others: None Do you have a plan to hurt others: No Plan Nutrition Risks: No Nutritional Risk Patient : No : No service: No Meds Allergies Allergy/AdvReac Type Severity Reaction Status Date / Time Sulfa (Sulfonamide Allergy Unknown RASH Verified 01/19/23 09:36 Antibiotics) [SULFA (SULFONAMIDE ANTIBIOTICS)] Active Medications: Current Medications Acetaminophen (Acetaminophen 325 Mg Tablet) 650 mg PO Q6H PRN PRN Reason: Pain, Mild (Pain Scale 1-3) Apixaban (Apixaban 5 Mg Tablet) 5 mg PO BID [facility] Last Admin: 01/21/23 08:39 Dose: 5 mg Benzonatate (Benzonatate 100 Mg Capsule) 100 mg PO TID PRN PRN Reason: Cough Calcium Carbonate (Calcium Carbonate 750 Mg Tab.Chew) 750 mg PO Q6H PRN PRN Reason: GI Upset Docusate Sodium (Docusate Sodium 100 Mg Capsule) 100 mg PO DAILY PRN PRN Reason: Constipation Furosemide (Furosemide 20 Mg/2 Ml Vial) 20 mg IVPUSH DAILY [facility]; Protocol Last Admin: 01/21/23 08:39 Dose: 20 mg Levothyroxine Sodium (Levothyroxine Sodium 25 Mcg Tablet) 25 mcg PO DAILY@0600 [facility] Last Admin: 01/21/23 07:46 Dose: 25 mcg Melatonin (Melatonin 3 Mg Tablet) 6 mg PO BEDTIME PRN PRN Reason: Insomnia Metoprolol Tartrate (Metoprolol Tartrate 50 Mg Tablet) 50 mg PO QID [facility]; Protocol Last Admin: 01/21/23 08:39 Dose: 50 mg Ondansetron HCl (Ondansetron Hcl 4 Mg/2 Ml Vial) 4 mg IVPUSH Q8H PRN PRN Reason: Nausea and Vomiting Last Admin: 01/20/23 11:01 Dose: 4 mg Sodium Chloride (0.9 % Sodium Chloride Flush 3 Ml Syringe) [facility] Last Admin: 01/21/23 08:39 Dose: 3 ml Home Medications Medication Instructions Recorded Confirmed Last Taken Type levothyroxine 25 mcg tablet 25 mcg PO DAILY 01/19/23 01/19/23 01/18/23 History lisinopril 10 mg tablet 10 mg PO DAILY 01/19/23 01/19/23 01/18/23 History metoprolol tartrate 25 mg tablet 25 mg PO DAILY 01/19/23 01/19/23 01/18/23 History Exam Height,Weight and Vital Signs: Height 5 ft 6 in Weight 101.2 kg Last Vital Signs Temp 98.0 F 01/21/23 07:53 Pulse 61 01/21/23 07:53 Resp 16 01/21/23 07:53 BP 120/76 01/21/23 07:53 Pulse Ox 95 01/21/23 07:53 O2 Del Method Room Air 01/21/23 07:53 Pertinent Lab Results Pertinent Lab Results: Laboratory Tests 01/19/23 01/19/23 01/20/23 10:09 17:14 06:40 WBC 6.4 6.7 RBC 4.42 4.25 Hgb 13.8 13.4 Hct 42.7 41.2 MCV 96.6 96.9 MCH 31.2 31.5 MCHC 32.3 32.5 RDW 13.2 13.3 Plt Count 240 245 MPV 9.9 9.9 Immature Gran % (Auto) 0.3 Neut % (Auto) 68.2 Lymph % (Auto) 20.4 [place] % (Auto) 7.7 Eos % (Auto) 2.8 Baso % (Auto) 0.6 Lymph # (Auto) 1.3 [place] # (Auto) 0.5 Eos # (Auto) 0.2 Baso # (Auto) 0.0 Abs Immat Gran (auto) 0.02 Absolute Neuts (auto) 4.3 Absolute Nucleated RBC 0.000 0.000 Nucleated RBC % (auto) 0.0 0.0 Hold Purple Top PT 11.8 INR 1.0 VBG pH VBG pCO2 VBG pO2 VBG HCO3 VBG O2 Saturation VBG Base Excess Sodium 141 141 Potassium 4.6 4.3 Chloride 111 H 109 H Carbon Dioxide 23 26 Anion Gap 12 10 L BUN 12 14 Creatinine 0.76 0.82 Estim Creat Clear Calc 84.8 77.9 Estimated GFR > 60 > 60 Random Glucose 131 H 120 H Estimat Average Glucose 126 Hemoglobin A1c % 6.0 Calcium 9.3 9.1 Total Bilirubin 0.5 Direct Bilirubin 0.2 AST 16 ALT 22 Alkaline Phosphatase 80 Troponin I High Sens < 2.7 < 2.7 B-Natriuretic Peptide 298 H 246 H Total Protein 7.0 Albumin 3.9 TSH 1.44 01/20/23 01/21/23 01/21/23 08:34 06:57 07:12 WBC RBC Hgb Hct MCV MCH MCHC RDW Plt Count MPV Immature Gran % (Auto) Neut % (Auto) Lymph % (Auto) [place] % (Auto) Eos % (Auto) Baso % (Auto) Lymph # (Auto) [place] # (Auto) Eos # (Auto) Baso # (Auto) Abs Immat Gran (auto) Absolute Neuts (auto) Absolute Nucleated RBC Nucleated RBC % (auto) Hold Purple Top SEE NOTE PT INR VBG pH 7.45 H VBG pCO2 38 VBG pO2 80 VBG HCO3 26 VBG O2 Saturation 96.0 VBG Base Excess 2.6 Sodium 141 Potassium 4.0 Chloride 108 Carbon Dioxide 26 Anion Gap 11 L BUN 12 Creatinine 0.80 Estim Creat Clear Calc 79.6 Estimated GFR > 60 Random Glucose 123 H Estimat Average Glucose Hemoglobin A1c % Calcium 9.0 Total Bilirubin Direct Bilirubin AST ALT Alkaline Phosphatase Troponin I High Sens B-Natriuretic Peptide Total Protein Albumin TSH Airway Mallampati Class: II TM Dist: >3cm Neck ROM: Full Assessment and Plan Assessment Anesthesia Assessment: Anesthesia Plan Discussed and Chart Reviewed Final Anesthetic Review Family History of Problems with Anesthesia: No History of Problems with Anesthesia: No NPO: Yes ASA Class: III and Emergency Final Preanesthetic Review: No Changes in Pt Med Stat, Meds/Allgs Chart Reviewed, Consent Obtained/Reviewed and Anes Risks/Benef Reviewed Patient Risk: Intermediate Procedure Risk: Low Anesthetic Plan Anesthetic Plan: GA Disposition: Standard PACU
--- NOTE | 2023-01-21 09:23 | MHC.SHP ---
Pre-Procedural Eval Section A Date of Service: 01/21/23 The patient is an INPATIENT: Yes Section B Chief Complaint: Afib with RVR Allergies: Allergies Allergy/AdvReac Type Severity Reaction Status Date / Time Sulfa (Sulfonamide Allergy Unknown RASH Verified 01/19/23 09:36 Antibiotics) [SULFA (SULFONAMIDE ANTIBIOTICS)] Plan I have reviewed the history and physical and performed a pertinent physical examination on my patient. No changes have occurred unless specified. Time Spent With Patient Time: Total time managing care of this patient today ____ minutes.
--- NOTE | 2023-01-21 09:32 | MHC.CM.PN ---
Patient is not yet medically cleared for dc (Appears to be preparing for a Cardioversion today); home is the goal and CM will continue to follow.
--- NOTE | 2023-01-21 10:25 | ECG_ITS ---
Test Reason : S/P CARDIOVERSION Blood Pressure : / mmHG Vent. Rate : 070 BPM Atrial Rate : 070 BPM P-R Int : 152 ms QRS Dur : 082 ms QT Int : 412 ms P-R-T Axes : 018 025 024 degrees QTc Int : 444 ms Normal sinus rhythm Normal ECG When compared with ECG of 19-JAN-2023 17:02, Sinus rhythm has replaced Atrial fibrillation Vent. rate has decreased BY 42 BPM Nonspecific T wave abnormality no longer evident in Anterolateral leads Referred By: Margarito Marshall Electronically Signed By:SAHRA LIN MD
--- NOTE | 2023-01-21 10:28 | HO.CARDIVERS ---
Cardioversion Procedure Note Cardioversion Date of Procedure: 01/21/2023 Ordering Provider: Dr. Marshall Performing Provider: Dr. Marshall Indication for Procedure: Atrial fibrillation rapid ventricular response Pre-Op Diagnosis: Atrial fibrillation rapid ventricular response Post-Op Diagnosis: Sinus rhythm JET findings (if JET Performed): No evidence of left atrial appendage thrombus History: See full consultation Consent: Informed consent obtained Procedure: After informed consent was obtained, he was taken to the operating room. Anesthesia was administered by the anesthesiologist. Transesophageal echocardiogram was initially performed and that showed no evidence of left atrial appendage thrombus. Then successfully cardioverted with 150 joules of synchronized shock. Patient converted to sinus rhythm. Complications: None. Impression: Successful cardioversion from atrial fibrillation rapid rate to sinus rhythm. Recommendations: Start amiodarone. Decrease beta-blockers. Continue anticoagulation.
[2023-01-21] MEDS: Amiodarone HCL 200 MG TABLET 400 MG PO ×2 (10:44→20:41)
--- NOTE | 2023-01-21 11:09 | P.PNCA_ITS ---
Subjective Subjective Date of Service: 01/21/23 Interval history: Today, she underwent JET and cardioversion. Postprocedure, she states she feeling better. No more palpitations and otherwise feels better. Review of Systems Review of Systems Yes all other systems are reviewed and are negative Constitutional: Reports as per HPI and Reports no additional constitutional complaints Eyes: Reports as per HPI and Denies no additional eye complaints Denies system reviewed and no additional complaints, except as documented and Reports as per HPI Cardiovascular: Reports as per HPI, Reports no additional cardiovascular complaints, Denies acrocyanosis, Denies cool extremities, Denies chest pain, Denies leg edema, Denies lightheadedness, Denies palpitations and Denies dyspnea Respiratory: Reports as per HPI, Denies no additional respiratory complaints and Denies dyspnea Gastrointestinal: Reports as per HPI and Denies no additional gastrointestinal complaints Genitourinary: Reports as per HPI Musculoskeletal: Reports no additional musculoskeletal complaints and Reports as per HPI Skin/Breast: Reports system reviewed and no additional complaints, except as docu Reports system reviewed and no additional complaints, except as documented and Reports as per HPI Psychiatric: Reports no additional psychiatric complaints and Reports as per HPI Endocrine: Reports no additional endocrine complaints, Reports as per HPI and Denies palpitations Hematologic/Lymphatic: Reports no additional hematologic/lymphatic complaints and Reports as per HPI Allergic/Immunologic: Reports no additional allergic/immunologic complaints and Reports as per HPI Physical Exam Vital Signs: Last Vital Signs Temp 97 F 01/21/23 10:50 Pulse 68 01/21/23 10:50 Resp 18 01/21/23 10:50 BP 90/59 L 01/21/23 10:50 Pulse Ox 93 01/21/23 10:50 O2 Del Method Nasal Cannula 01/21/23 10:50 O2 Flow Rate 2 01/21/23 10:50 BMI result Body Mass Index 36.0 Const General: comfortable and no acute distress Orientation/consciousness: patient oriented x3 HEENT Other: Unremarkable Head: Yes normal to inspection Neck Neck: Yes normal visual inspection Chest Chest palpation & inspection: normal inspection of the chest Resp Auscultation: clear to auscultation bilaterally Cardio Palpation: normal PMI Heart sounds: S1 normal heart sound present, S2 normal heart sound present, no gallops, no murmurs and no rubs GI Palpation (GI): Soft to palpation Back/Spine/Pelvis Other: unremarkable Skin General skin exam: no rashes or lesions noted Neuro General: patient oriented x3 Extrem General: Yes normal to inspection Psych Mental Status: mental status grossly normal Objective Labs and Meds 01/20/23 06:40 01/21/23 06:57 Lab results: Laboratory Results - last 24 hr 01/21/23 01/21/23 06:57 07:12 Hold Purple Top SEE NOTE Sodium 141 Potassium 4.0 Chloride 108 Carbon Dioxide 26 Anion Gap 11 L BUN 12 Creatinine 0.80 Estim Creat Clear Calc 79.6 Estimated GFR > 60 Random Glucose 123 H Calcium 9.0 Progress Note: A&P Assessment and plan (1) Atrial fibrillation with rapid ventricular response: Status: Acute Assessment and Plan: Status post JET and cardioversion. No evidence of left atrial appendage thrombus. Successfully cardioverted. Currently in sinus rhythm. Start amiodarone. 400 mg b.i.d. for 2 weeks followed by 200 mg daily. Decrease beta- annel dosing. Anticoagulation. (2) Acute congestive heart failure: Status: Acute Assessment and Plan: Should hopefully get better now that she is in sinus rhythm. Change to oral diuretics. Echocardiogram with LVEF of 30-35%. This could all be from tachycardia induced cardiomyopathy. May need ischemia workup rather as an outpatient. Plan Discussed with Dr. Adams. Time Spent With Patient Time: Total time managing care of this patient today ____ minutes. Progress Note: Quality Stroke Does the patient have a stroke diagnosis?: No Procedures Date of Service Date of Service: 01/21/23
--- NOTE | 2023-01-21 15:54 | HO.PM.IMPN ---
Subjective Subjective Date of Service: 01/21/23 Interval History: afib ,chf Review of Systems sob slowly improving Denies any chest pain or palpitations Physical Exam Vital Signs: Vital Signs: Last Vital Signs Temp 97.4 F 01/21/23 11:28 Pulse 68 01/21/23 11:28 Resp 18 01/21/23 11:28 BP 102/56 L 01/21/23 11:28 Pulse Ox 93 01/21/23 11:28 O2 Del Method Nasal Cannula 01/21/23 11:28 O2 Flow Rate 1 01/21/23 11:28 Oxygen Flow Rate 1 01/21/23 09:17 BMI result Body Mass Index 36.0 Appearance: Alert.? Oriented X3. cvs: irregular rythem, [id number] , no murmur res: clear to auscultation ,no rhonchii or wheezing abd: no rebound or guarding ,nt, bs present. ext pulses present , no cyanosis ,trace edema neuro: axo3 , nonfocal. Objective Data Active Medications Acetaminophen (Acetaminophen 325 Mg Tablet) 650 mg PO Q6H PRN PRN Reason: Pain, Mild (Pain Scale 1-3) Amiodarone HCl (Amiodarone Hcl 200 Mg Tablet) 400 mg PO BID [facility] Last Admin: 01/21/23 10:44 Dose: 400 mg Documented By: ROHITH Apixaban (Apixaban 5 Mg Tablet) 5 mg PO BID [facility] Last Admin: 01/21/23 08:39 Dose: 5 mg Documented By: JL Benzonatate (Benzonatate 100 Mg Capsule) 100 mg PO TID PRN PRN Reason: Cough Calcium Carbonate (Calcium Carbonate 750 Mg Tab.Chew) 750 mg PO Q6H PRN PRN Reason: GI Upset Docusate Sodium (Docusate Sodium 100 Mg Capsule) 100 mg PO DAILY PRN PRN Reason: Constipation Furosemide (Furosemide 20 Mg/2 Ml Vial) 20 mg IVPUSH DAILY [facility]; Protocol Last Admin: 01/21/23 08:39 Dose: 20 mg Documented By: JL Levothyroxine Sodium (Levothyroxine Sodium 25 Mcg Tablet) 25 mcg PO DAILY@0600 [facility] Last Admin: 01/21/23 07:46 Dose: 25 mcg Documented By: YIFAN Melatonin (Melatonin 3 Mg Tablet) 6 mg PO BEDTIME PRN PRN Reason: Insomnia Metoprolol Succinate (Metoprolol Succinate Er 50 Mg Tab.Er.24h) 50 mg PO DAILY [facility]; Protocol Ondansetron HCl (Ondansetron Hcl 4 Mg/2 Ml Vial) 4 mg IVPUSH Q8H PRN PRN Reason: Nausea and Vomiting Last Admin: 01/20/23 11:01 Dose: 4 mg Documented By: GLENTEKEdu Sodium Chloride (0.9 % Sodium Chloride Flush 3 Ml Syringe) 3 ml IVFLUSH QSHIFT FREDDIE Last Admin: 01/21/23 08:39 Dose: 3 ml Documented By: RIOSCEL Labs 01/20/23 06:40 01/21/23 06:57 Labs: Laboratory Results - last 24 hr 01/21/23 01/21/23 06:57 07:12 Hold Purple Top SEE NOTE Anion Gap 11 L Estim Creat Clear Calc 79.6 Estimated GFR > 60 Random Glucose 123 H Calcium 9.0 Assessment and Plan (1) Heart failure, unspecified: Status: Acute (2) Atrial fibrillation with rapid ventricular response: Status: Acute Plan 67-year-old female with a PMH significant for?HTN, hypothyroidism, and GERD who presents to the ED from Cardiology office for evaluation and treatment of AFib with RVR. Pt will be admitted to the hospital for treatment and further evaluation of new onset AFib with RVR and new onset CHF. New onset AFib with RVR EKG showed AFib with RVR 135, no previous history AFib Patient with increasing SOB and fatigue released the past 6 weeks Received IV metoprolol initially, subsequently was started on metoprolol, currently patient was switched to amiodarone 400 mg p.o. b.i.d. and metoprolol adjusted to 50 XL, Eliquis 5 mg b.i.d. Pt will get TTE now, possible JET with cardioversion the today Cardiology consult Monitor on telemetry New onset CHF, unspecified CXR with evidence of CHF, elevated BNP, patient with SOB, pitting edema Possibly secondary to a fib Will treat with Lasix 20 mg IV daily, may need to switch to po lasix. Follow lytes, I/O Daily weights, low-salt diet Echocardiogram Cardiology consult Monitor on telemetry HTN metoprolol,hold lisinopril due to boderline bp. Hypothyroidism Continue levothyroxine GERD Not currently any home medications Tums prn Full Code DVT Prophylaxis: On Eliquis ongoing hospitalization need for treatment of?new onset AFib with RVR in new onset CHF. Patient be treated with IV diuretics, close monitoring, specialist consultation, and possible cardioversion. Quality Stroke Does the patient have a stroke diagnosis?: No VTE Prior VTE?: No VTE Risk Level:: Medical - moderate - high VTE Device Contraindication: Treatment Not Indicated VTE Drug Contraindication: N/A - Med Ordered
--- NOTE | 2023-01-21 16:20 | P.CDIM_ITS ---
PROVIDER RESPONSE TEXT: To clarify, the appropriate diagnosis supported by the clinical indicators: Other (explain): Hfpef QUERY TEXT: PHYSICIAN'S DOCUMENTATION REQUEST Date of Query: 01/21/2023 12:09 PM EST Patient Name: Dennise Ramsay Admit Date: 01/19/2023 Dear Allie Adams, A review of the medical record indicates additional documentation may be needed. Please review below and update the documentation accordingly. Clinical Indicators: Cardiology notes - Acute Congestive heart failure, change to oral diuretics. Echo with LVEF of 30-35% . Cardiology note dated 01/20 - She could be in going into CHF because of the atrial fibrillation. BNP [phone] Please provide further specificity regarding the most likely type and acuity of CHF you are evaluatin g, treating, or monitoring. Systolic Please specify if Acute, Chronic, or Acute on chronic, or Unable to determine Diastolic Please specify if Acute, Chronic, or Acute on chronic, or Unable to determine Combined Systolic/Diastolic Please specify if Acute, Chronic, or Acute on chronic, or Unable to determine Other (explain) Clinically unable to determine (explain) Thank you, Mildred Wagner, CCS, CDIS Use of terms such as suspected, likely, concern for, or probable (associated with a specific diagnosi s that is being evaluated, monitored, or treated as if it exists) are acceptable and can be coded in the inpatient se tting, when documented at the time of discharge. Please use your independent medical judgment in providing your response. THIS QUERY IS PART OF THE PERMANENT MEDICAL RECORD
--- NOTE | 2023-01-21 16:21 | P.CDIM_ITS ---
PROVIDER RESPONSE TEXT: To clarify, the appropriate diagnosis supported by the clinical indicators: Obesity Due to excess calories QUERY TEXT: PHYSICIAN'S DOCUMENTATION REQUEST Date of Query: 01/21/2023 12:13 PM EST Patient Name: Dennise Ramsay Admit Date: 01/19/2023 Dear Allie Adams, A review of the medical record indicates additional documentation may be needed. Please review below and update the documentation accordingly. Clinical Indicators: Nursing notes Height and Weight: BMI 36.2 101.2kg 5ft 6in Obesity class II If possible, please provide an associated diagnosis related to the abnormal BMI, such as: Overweight Obesity Due to excess calories Obesity Due to other cause Specify the other cause Severe or Morbid Obesity With alveolar hypoventilation Severe or Morbid Obesity Without alveolar hypoventilation Other (explain) Clinically unable to determine (explain) Thank you, Mildred Wagner, CCS, CDIS Use of terms such as suspected, likely, concern for, or probable (associated with a specific diagnosi s that is being evaluated, monitored, or treated as if it exists) are acceptable and can be coded in the inpatient se tting, when documented at the time of discharge. Please use your independent medical judgment in providing your response. THIS QUERY IS PART OF THE PERMANENT MEDICAL RECORD
[2023-01-21] MEDS: Throat Lozenge, Medicated LOZENGE 1 LOZENGE MUCOUS MEM (17:20)
[2023-01-22] VITALS: BP 116/57; PULSE 72; RESP 18; TEMP 36.6; O2SAT 93
[2023-01-22 03:38] VITALS: BP 112/60; PULSE 72; RESP 18; TEMP 36.2; O2SAT 94
[2023-01-22] MEDS: Levothyroxine Sodium 25 MCG TABLET PO (05:23)
[2023-01-22 06:00] VITALS: BMI 36.2
[2023-01-22 07:08] LABS: Anion Gap 11 (12-20); Blood Urea Nitrogen 14 mg/dL (9-16); Carbon Dioxide 26 mmol/L (22-29); Chloride 105 mmol/L (96-108); Estimated Glomerular Filt Rate > 60; Glucose Random 133 mg/dL (60-115); Potassium 3.8 mmol/L (3.3-5.1); Sodium 138 mmol/L (135-145)
[2023-01-22 07:52] VITALS: BP 114/66; PULSE 68; RESP 20; TEMP 36.2; O2SAT 94
[2023-01-22 07:59] VITALS: BP 122/64; PULSE 68; RESP 14; TEMP 36.7; O2SAT 94
[2023-01-22] MEDS: Amiodarone HCL 200 MG TABLET 400 MG PO (08:04)
[2023-01-22] MEDS: Apixaban 5 MG TABLET PO (08:04)
[2023-01-22] MEDS: Metoprolol Succinate ER 50 MG TAB.ER.24H PO (08:04)
[2023-01-22] MEDS: Furosemide 20 MG TABLET PO (08:04)
[2023-01-22] MEDS: 0.9 % Sodium Chloride Flush 3 ML SYRINGE IVFLUSH (08:04)
--- NOTE | 2023-01-22 09:04 | P.PNCA_ITS ---
Subjective Subjective Date of Service: 01/22/23 Interval history: Doing better. No longer has any shortness of breath or palpitations. Review of Systems Review of Systems Yes all other systems are reviewed and are negative Constitutional: Reports as per HPI and Reports no additional constitutional complaints Eyes: Reports as per HPI and Denies no additional eye complaints Denies system reviewed and no additional complaints, except as documented and Reports as per HPI Cardiovascular: Reports as per HPI, Reports no additional cardiovascular complaints, Denies acrocyanosis, Denies cool extremities, Denies chest pain, Denies leg edema, Denies lightheadedness, Denies palpitations and Denies dyspnea Respiratory: Reports as per HPI, Denies no additional respiratory complaints and Denies dyspnea Gastrointestinal: Reports as per HPI and Denies no additional gastrointestinal complaints Genitourinary: Reports as per HPI Musculoskeletal: Reports no additional musculoskeletal complaints and Reports as per HPI Skin/Breast: Reports system reviewed and no additional complaints, except as docu Reports system reviewed and no additional complaints, except as documented and Reports as per HPI Psychiatric: Reports no additional psychiatric complaints and Reports as per HPI Endocrine: Reports no additional endocrine complaints, Reports as per HPI and Denies palpitations Hematologic/Lymphatic: Reports no additional hematologic/lymphatic complaints and Reports as per HPI Allergic/Immunologic: Reports no additional allergic/immunologic complaints and Reports as per HPI Physical Exam Vital Signs: Last Vital Signs Temp 98.0 F 01/22/23 07:59 Pulse 68 01/22/23 07:59 Resp 14 01/22/23 07:59 BP 122/64 01/22/23 07:59 Pulse Ox 94 01/22/23 07:59 O2 Del Method Room Air 01/22/23 07:59 O2 Flow Rate 1 01/21/23 11:28 Oxygen Flow Rate 1 01/21/23 09:17 BMI result Body Mass Index 36.2 Const General: comfortable and no acute distress Orientation/consciousness: patient oriented x3 HEENT Other: Unremarkable Head: Yes normal to inspection Neck Neck: Yes normal visual inspection Chest Chest palpation & inspection: normal inspection of the chest Resp Auscultation: clear to auscultation bilaterally Cardio Palpation: normal PMI Heart sounds: S1 normal heart sound present, S2 normal heart sound present, no gallops, no murmurs and no rubs GI Palpation (GI): Soft to palpation Back/Spine/Pelvis Other: unremarkable Skin General skin exam: no rashes or lesions noted Neuro General: patient oriented x3 Extrem General: Yes normal to inspection Psych Mental Status: mental status grossly normal Objective Labs and Meds 01/20/23 06:40 01/22/23 05:51 Lab results: Laboratory Results - last 24 hr 01/22/23 05:51 Hold Purple Top SEE NOTE Sodium 138 Potassium 3.8 Chloride 105 Carbon Dioxide 26 Anion Gap 11 L BUN 14 Creatinine 0.83 Estim Creat Clear Calc 77.0 Estimated GFR > 60 Random Glucose 133 H Calcium 9.0 Progress Note: A&P Assessment and plan (1) Atrial fibrillation with rapid ventricular response: Status: Acute Assessment and Plan: Status post JET and cardioversion. No evidence of left atrial appendage thrombus. Successfully cardioverted. Currently in sinus rhythm. A Amiodarone. 400 mg b.i.d. for 2 weeks followed by 200 mg daily. Low-dose beta-blockers as the blood pressure also lowish. Anticoagulation. (2) Acute congestive heart failure: Status: Acute Assessment and Plan: Echocardiogram with LVEF of 30-35%. This could all be from tachycardia induced cardiomyopathy. Continue low-dose diuretics. Clinically, mostly euvolemic. Ischemia workup as an outpatient based on LV recovery. Guideline based medical therapy as an outpatient as the blood pressure somewhat lowish. May not have room to optimize. 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 Time Spent With Patient Time: Total time managing care of this patient today ____ minutes. Progress Note: Quality Stroke Does the patient have a stroke diagnosis?: No Procedures Date of Service Date of Service: 01/22/23
--- NOTE | 2023-01-22 10:05 | MHC.CM.PN ---
IMM 01/20/23 Patient is discharged to home self care. She has been given the Eliquis coupon. AC management education provided. Pt verbalized understanding of all education provided. She will transport home with a family member.
--- NOTE | 2023-01-22 10:28 | P.DS_ITS ---
DS: Providers Provider Date of Service: 01/22/23 Date of admission: 01/19/23 14:04 Date of discharge: 01/22/23 Primary care physician: Ousmane Saldana MD Consults: 01/19/23 14:09 Consult to Cardiology Routine Consulting Provider: [facility] [place] Cardiovascular Services Reason for consultation: New onset AFib with RVR Attending physician on discharge: Allie Adams Discharging clinician: Allie Adams DS: Diagnosis Discharge Diagnosis (1) Atrial fibrillation with rapid ventricular response: Status: Acute (2) Acute congestive heart failure: Status: Acute DS: Summary Hospital Course Hospital Course: Hospital course: Patient came to the hospital because of palpitation and shortness of breath: Found to have elevated BNP, also AFib with RVR, possible CHF: Started on amiodarone, metoprolol, Eliquis, IV Lasix- subsequently seen by Cardiology and s/p cardioversion(JET guided)-now in sinus rhythm. Echo was done: Patient has low EF(for patient has possible heart failure with reduced ejection fraction). Patient was seen by Cardiology recommended: Continue amiodarone for 400 mg po bid for 2 weeks until02/03/23 then switch to 02/04/23 amiodarone po 200 mg daily, continue metoprolol, patient was strongly encouraged to continue uninterrupted Eliquis. Lisinopril is on hold blood pressure is borderline, it can be started out patiently . CHF education given, monitor weight daily-if weight gain 2 lb or more in a week may need Lasix adjustment outpatient. Currently patient shortness of breath improved, patient is asymptomatic. Cardiology may arrange their own appointment. Plan: amiodarone for 400 mg po bid for 2 weeks until02/03/23 then switch to 02/04/23 amiodarone po 200 mg daily, metoprolol adjusted to 50 mg daily.patient was strongly encouraged to continue uninterrupted Eliquis. Lisinopril is on hold blood pressure is borderline, it can be started out patiently . Above management discussed the patient detail length she understand and in agreement with above plan, time spent 50 minute. Time Attestation Discharge coordination time: Greater than 30 minutes Quality: Safe Use of Opioids Does Pt have an Active Cancer Diagnosis on the Problem List?: No Quality: Stroke Does the patient have a stroke diagnosis?: No Physical Exam Vital Signs: Vital Signs: Last Vital Signs Temp 98.0 F 01/22/23 07:59 Pulse 68 01/22/23 07:59 Resp 14 01/22/23 07:59 BP 122/64 01/22/23 07:59 Pulse Ox 94 01/22/23 07:59 O2 Del Method Room Air 01/22/23 07:59 O2 Flow Rate 1 01/21/23 11:28 Oxygen Flow Rate 1 01/21/23 09:17 BMI result Body Mass Index 36.2 Appearance: Alert.? Oriented X3. cvs: irregular rythem, [id number] , no murmur res: clear to auscultation ,no rhonchii or wheezing abd: no rebound or guarding ,nt, bs present. ext pulses present , no cyanosis ,trace edema neuro: axo3 , nonfocal. DS: Data Data Completed and Pending Labs on day of discharge: Laboratory Results - last 24 hr 01/22/23 05:51 Hold Purple Top SEE NOTE Sodium 138 Potassium 3.8 Chloride 105 Carbon Dioxide 26 Anion Gap 11 L BUN 14 Creatinine 0.83 Estim Creat Clear Calc 77.0 Estimated GFR > 60 Random Glucose 133 H Calcium 9.0 Imaging Chest x-ray: Radiologist's impression: ITS Impressions Chest X-Ray 01/19/23 09:37 IMPRESSION: Hypoinflated lungs with increased interstitial markings at the right lung base with some possible curly B lines. Infection as an etiology cannot be excluded. Chest X-Ray 01/20/23 08:29 IMPRESSION: Persistent prominence of interstitial markings and improved aeration Discharge Plan Discharge Anticipated Discharge Date/Time: 01/22/23 10:15 Discharge Diagnosis: chf with reducced EF. afib rvr Referrals: Ousmane Saldana MD [Primary Care Provider] - 1 Week Discharge Medications: New Eliquis 5 mg Tablet 5 mg PO BID Qty: 60 0RF amiodarone 200 mg Tablet 400 mg PO BID Qty: 80 0RF Rx Instructions: please take amiodarone 400 mg(2 tabs) by mouth twice daily until 1 04/05/22),then on 02/04/23 switched to amiodarone by mouth 200 mg(1 tab) daily furosemide 20 mg Tablet 20 mg PO DAILY Qty: 30 0RF Protocol: Hold for SBP< HOLD for SBP < : 90 metoprolol succinate 50 mg Tablet Extended Release 24 Hr 50 mg PO DAILY Qty: 30 0RF Protocol: Hold for SBP/HR < HOLD for SBP < : 90 HOLD for HR < : 60 Continued levothyroxine 25 mcg tablet 25 mcg PO DAILY Discontinued lisinopril 10 mg tablet 10 mg PO DAILY metoprolol tartrate 25 mg tablet 25 mg PO DAILY Discharge Orders: Discharge Order (Routine); Ordered 01/22/23 Ordered By: Allie Adams Diet: Advance to usual diet Activity on Discharge: As tolerated Stand Alone Forms: Patient Portal Discharge page Care Plan Goals: Patient came to the hospital because of palpitation and shortness of breath: Found to have elevated BNP, also AFib with RVR: Started on amiodarone, metoprolol, Eliquis, IV Lasix- subsequently seen by Cardiology and s/p cardiove rsion-now in sinus rhythm. Echo was done: Patient has low EF(for patient has possible heart failure with reduced ejection fraction) Patient was seen by Cardiology recommended: Continue amiodarone for 400 mg po bid for 2 weeks until02/03/23 then switch to 02/04/23 amiodarone po 200 mg daily, continue metoprolol, Eliquis. Lisinopril is on hold blood pressure is borderline, it can be started out p atiently . CHF education given, monitor weight daily-if weight gain 2 lb or more in a week may need Lasix adjustment outpatient. Cardiology may arrange their own appointment. Health Concerns: As above. Plan of Treatment: As above. Assessment: As above.
--- NOTE | 2023-01-22 17:34 | HO.POSTANES ---
Post Anesthesia Evaluation Post Anesthesia Evaluation Date of Service: 01/22/23 Vital Signs: Vital Signs Temp Pulse Resp BP Pulse Ox O2 Del Method 01/22/23 07:59 98.0 F 68 14 122/64 94 Room Air 01/22/23 07:52 97.2 F 68 20 114/66 94 Room Air Anesthesia: Monitored Mental Status: Awake Pain Control: Satisfactory Nausea/Vomiting: None Hydration: Adequate Anesthesia-Related Issues: No Anes. Related Issues
== END 2023-01-22 11:43 | disposition home or self-care (01) | DRG 308 ==
LOC: HO.ED 13:44 → HO.EDOVER 14:23 → HO.IMC 17:37
PROVIDERS: Internal Medicine; Admitting Provider Student in an Organized Health Care Education/Training Program; Emergency Provider Emergency Medicine Emergency Medical Services; PCP Family Medicine; Visit Provider Internal Medicine
PROC: 5A2204Z Restoration of Cardiac Rhythm, Single (ICD-10-PCS; principal; 2023-01-21 09:30)
PROC: 5A2204Z Restoration of Cardiac Rhythm, Single (ICD-10-PCS; CPT 93312; 2023-01-21 09:30)
DX: I48.91 Unspecified atrial fibrillation (principal); I50.31 Acute diastolic (congestive) heart failure; E66.01 Morbid (severe) obesity due to excess calories; K21.9 Gastro-esophageal reflux disease without esophagitis; E03.9 Hypothyroidism, unspecified; I11.0 Hypertensive heart disease with heart failure; Z68.36 Body mass index [BMI] 36.0-36.9, adult; Z71.3 Dietary counseling and surveillance; Z79.890 Hormone replacement therapy; Z79.899 Other long term (current) drug therapy
CPT/HCPCS: 36415; 71045; 80048; 80076; 82803; 83036; 83880; 84443; 84484; 85025; 85027; 85610; 92960; 93005; 93308; 99285; J1940; J2250; J2405; J2704; Q9957

== ENCOUNTER → 2023-01-19 09:23 | Outpatient (BNV) | payer OTHER, SELFPAY | PROVIDERS: Emergency Provider Emergency Medicine Emergency Medical Services; PCP Family Medicine; Visit Provider Internal Medicine | DX: I48.91 Unspecified atrial fibrillation (principal); I50.9 Heart failure, unspecified | CPT/HCPCS: 92960; 99223; 99232; 99233 ==

== ENCOUNTER 2023-01-19 14:04 | Outpatient (BNV) | payer OTHER, SELFPAY | END 2023-01-20 07:00 | PROVIDERS: Admitting Provider Student in an Organized Health Care Education/Training Program; Emergency Provider Emergency Medicine Emergency Medical Services; PCP Family Medicine; Visit Provider Internal Medicine | DX: I48.91 Unspecified atrial fibrillation (principal) | CPT/HCPCS: 93308 ==

== ENCOUNTER 2023-01-19 14:04 | Outpatient (BNV) | payer OTHER, SELFPAY | END 2023-01-21 07:00 | PROVIDERS: Admitting Provider Student in an Organized Health Care Education/Training Program; Emergency Provider Emergency Medicine Emergency Medical Services; PCP Family Medicine; Visit Provider Internal Medicine | DX: I34.0 Nonrheumatic mitral (valve) insufficiency (principal); I48.91 Unspecified atrial fibrillation | CPT/HCPCS: 93312; 93320; 93325 ==

== ENCOUNTER → 2023-01-19 14:04 | Outpatient (BNV) | payer OTHER, SELFPAY | PROVIDERS: Admitting Provider Student in an Organized Health Care Education/Training Program; Emergency Provider Emergency Medicine Emergency Medical Services; PCP Family Medicine; Visit Provider Student in an Organized Health Care Education/Training Program | DX: I48.91 Unspecified atrial fibrillation (principal); I50.9 Heart failure, unspecified | CPT/HCPCS: 99223; 99231; 99232; 99239 ==